=== PATIENT | female | born 1985 | race Caucasian/White ===

== ENCOUNTER 2017-03-02 12:34 | Emergency (ER) | payer OTHER ==
[2017-03-02 14:48] VITALS: BP 95/72
--- NOTE | 2017-03-02 15:39 | UC ---
Throat Pain/Nasal Kj HPI - HPI Summary HPI Summary: 31 female presents with complaints of a dry cough, nasal congestion, sore throat and swollen glands that began Thursday02/28/17. She has not tried anything OTC and symptoms have not improved. Denies worsening of symptoms. Denies fever/chills, abdominal pain, nausea, vomiting, diarrhea, headache and ear pain. States the sore throat and swollen glands pain radiates into her ears. Has been eating and drinking. Admits to her son being sick and recently diagnosed with an URI a few days ago. Is here with her younger son who also has the same symptoms. - History of Current Complaint Chief Complaint: UCGeneralIllness Stated Complaint: SORE THROAT,FEVER,BILATERAL EAR PAIN Time Seen by Provider: 03/02/17 15:06 Hx Obtained From: Patient Hx Last Menstrual Period: DAY 3 OF CURRENT MENSES ?: No Onset/Duration: Sudden Onset, Lasting Days, Still Present Severity: Mild Pain Intensity: 7 Pain Scale Used: 0-10 Numeric Cough: None Associated Signs & Symptoms: Positive: Dysphagia, Nasal Discharge. Negative: Wheezing, Sinus Discomfort, Fever - Allergies/Home Medications Allergies/Adverse Reactions: Allergies Allergy/AdvReac Type Severity Reaction Status Date / Time No Known Allergies Allergy Verified 03/02/17 14:48 Home Medications: Home Medications Biotin 5,000 mcg PO DAILY 03/02/17 [History Confirmed 03/02/17] Fluoxetine HCl [Prozac] 40 mg PO DAILY 03/02/17 [History Confirmed 03/02/17] Levothyroxine TAB* [Synthroid TAB*] 88 mcg PO DAILY 03/02/17 [History Confirmed 03/02/17] Quetiapine Fumarate [Seroquel] 200 mg PO BID 03/02/17 [History Confirmed ] Topiramate [Topamax 50 mg tab] 50 mg PO BID 03/02/17 [History Confirmed 03/02/17 ] PMH/Surg Hx/FS Hx/Imm Hx Endocrine History Of: Reports: Thyroid Disease - HYPO Denies: Diabetes Cardiovascular History Of: Denies: Hypertension, Pacemaker/ICD Respiratory History Of: Denies: Asthma - Surgical History Surgical History: Yes Surgery Procedure, Year, and Place: HYSTERECTOMY 12/10/15, [facility]. [place] TO WAIVE POST SURGICAL WAITING PERIOD PER DR COTTON - Family History Known Family History: Positive: None - Social History Alcohol Use: Rare Substance Use Type: None Smoking Status (MU): Current Every Day Smoker Type: Cigarettes Amount Used/How Often: 6-7 CIGS DAILY Length of Time of Smoking/Using Tobacco: APPROX 3 YRS Review of Systems Constitutional: Negative Skin: Negative Eyes: Negative ENT: Sore Throat, Nasal Discharge Respiratory: Cough Cardiovascular: Negative Gastrointestinal: Negative Genitourinary: Negative Motor: Negative Neurovascular: Negative Musculoskeletal: Negative Neurological: Negative Psychological: Negative All Other Systems Reviewed And Are Negative: Yes Physical Exam Triage Information Reviewed: Yes Appearance: Well-Appearing, No Pain Distress, Well-Nourished Vital Signs: Initial Vital Signs Temp 98.5 F 03/02/17 14:43 Pulse 72 03/02/17 14:43 Resp 14 03/02/17 14:43 BP 95/72 03/02/17 14:43 Pulse Ox 99 03/02/17 14:43 Vital Signs Reviewed: Yes Eyes: Positive: Conjunctiva Clear ENT: Positive: Normal ENT inspection, Hearing grossly normal, Pharyngeal erythema, Nasal congestion, TMs normal, Tonsillar swelling - minimal. Negative : Tonsillar exudate Dental: Positive: Cervical Lymphadenopathy. Negative: Percussion Tenderness @ Neck: Positive: Supple, Nontender Respiratory: Positive: Chest non-tender, Lungs clear, Normal breath sounds, No respiratory distress, No accessory muscle use Cardiovascular: Positive: RRR, No Murmur, Pulses Normal, Brisk Capillary Refill Abdominal Exam: Normal Bowel Sounds: Positive: Present Musculoskeletal Exam: Normal Neurological: Positive: Alert Psychological Exam: Normal Skin Exam: Normal Throat Pain/Nasal Course/Dx - Course Course Of Treatment: strep culture obtained and negative. patient will be treated for URI with symptomatic measures at this time. prescibed flonase. aware of worsening signs and symptoms to watch out for. - Differential Dx/Diagnosis Differential Diagnosis/HQI/PQRI: Influenza, Otitis Media, Pharyngitis, Sinusitis , Tonsillitis, URI Provider Diagnoses: URI Discharge - Discharge Plan Condition: Stable Disposition: HOME Prescriptions: Fluticasone NASAL SPRAY 50MCG* [Flonase NASAL SPRAY 50MCG*] 2 spray BOTH NARES DAILY #1 btl Patient Education Materials: Upper Respiratory Infection (ED) Referrals: Rita Houser MD [Medical Doctor] - Additional Instructions: Use prescribed Flonase as directed to help with nasal congestion. Take tylenol/ ibuprofen as needed for discomfort and fever. Take OTC medications such as Zicam and Mucinex to help with congestion and to improve symptoms. Drink plenty of fluids, get plenty of rest and wash hands frequently. If symptoms persist or worsen please seek medical attention. Viral illness may last up to 14 days.
== END 2017-03-02 15:58 | disposition home or self-care (01) ==
LOC: UCCORT 12:34
DX: J06.9 Acute upper respiratory infection, unspecified (principal); E03.9 Hypothyroidism, unspecified; F17.210 Nicotine dependence, cigarettes, uncomplicated
CPT/HCPCS: 87651; 99211; G0463

== ENCOUNTER 2019-02-07 09:13 | Emergency (ER) | payer OTHER ==
[2019-02-07 10:36] VITALS: BP 111/86
--- NOTE | 2019-02-07 11:37 | UC ---
General HPI - HPI Summary HPI Summary: Satruday am sudden head congestion, cough, chest congestion and headache with bodyaches. no hx asthma. lungs feel a little tight and has used an albuterol mdi in past with relief. +f/c's - History of Current Complaint Chief Complaint: UCRespiratory Stated Complaint: EARS,SORE THROAT,COUGH Time Seen by Provider: 02/07/19 11:14 Hx Obtained From: Patient Hx Last Menstrual Period: DAY 3 OF CURRENT MENSES Timing: Constant Pain Intensity: 5 Associated Signs & Symptoms: Negative: Chest Pain - Allergy/Home Medications Allergies/Adverse Reactions: Allergies Allergy/AdvReac Type Severity Reaction Status Date / Time No Known Allergies Allergy Verified 02/07/19 10:31 PMH/Surg Hx/FS Hx/Imm Hx Endocrine History: Thyroid Disease Psychological History: Bipolar Disorder - Surgical History Surgical History: Yes Surgery Procedure, Year, and Place: HYSTERECTOMY 12/10/15, [facility]. [place] TO WAIVE POST SURGICAL WAITING PERIOD PER DR COTTON - Family History Known Family History: Positive: None - Social History Lives: With Family Alcohol Use: Occasionally Substance Use Type: None Smoking Status (MU): Current Every Day Smoker Type: Cigarettes Amount Used/How Often: 6-7 CIGS DAILY Length of Time of Smoking/Using Tobacco: APPROX 3 YRS - Immunization History Vaccination Up to Date: Yes Review of Systems All Other Systems Reviewed And Are Negative: Yes Constitutional: Positive: Fever, Chills ENT: Positive: Sinus Congestion Respiratory: Positive: Shortness Of Breath, Cough Musculoskeletal: Positive: Myalgia Neurological: Positive: Headache Physical Exam Triage Information Reviewed: Yes Appearance: Well-Appearing Vital Signs: Initial Vital Signs Temp 98.5 F 02/07/19 10:32 Pulse 60 02/07/19 10:32 Resp 16 02/07/19 10:32 BP 111/86 02/07/19 10:32 Pulse Ox 100 02/07/19 10:32 Vital Signs Reviewed: Yes Eyes: Positive: Conjunctiva Clear ENT: Positive: Pharynx normal, Nasal congestion, TMs normal. Negative: Nasal drainage, Sinus tenderness Neck: Positive: Supple, Nontender, No Lymphadenopathy Respiratory: Positive: Lungs clear, No respiratory distress, Decreased breath sounds - slight, Other: - NPC Cardiovascular: Positive: RRR, No Murmur Abdomen Description: Positive: Nontender, No Organomegaly, Soft Bowel Sounds: Positive: Present Musculoskeletal: Positive: ROM Intact Neurological: Positive: Alert Psychological: Positive: Age Appropriate Behavior Skin Exam: Normal Course/Dx - Course Course Of Treatment: rapid flu=neg; however, pt s/s's c/w local influenza - Diagnoses Provider Diagnosis: Influenza-like illness Discharge - Sign-Out/Discharge Documenting (check all that apply): Patient Departure All imaging exams completed and their final reports reviewed: No Studies - Discharge Plan Condition: Stable Disposition: HOME Prescriptions: Albuterol HFA INHALER* [Ventolin HFA Inhaler*] 2 puff INH Q6H #1 mdi Patient Education Materials: Influenza (ED) Forms: *Work Release Referrals: Mayra Rodriguez NP [Primary Care Provider] - 5 Days - Billing Disposition and Condition Condition: STABLE Disposition: Home - Attestation Statements Provider Attestation: I was available for consult. This patient was seen by the [facility]. The patient was not presented to, seen by, or examined by me. -[place]
[2019-02-07 11:49] LABS: Influenza A Molecular NEGATIVE (Negative); Influenza B Molecular NEGATIVE (Negative)
== END 2019-02-07 12:00 | disposition home or self-care (01) ==
LOC: UCCORT 09:13
DX: J11.1 Influenza due to unidentified influenza virus with other respiratory manifestations (principal); F17.210 Nicotine dependence, cigarettes, uncomplicated; E07.9 Disorder of thyroid, unspecified; F31.9 Bipolar disorder, unspecified
CPT/HCPCS: 99212; G0463

== ENCOUNTER 2019-04-20 09:10 | Emergency (ER) | payer OTHER ==
[2019-04-20 09:29] VITALS: BP 101/77
--- NOTE | 2019-04-20 10:22 | UC ---
General HPI - HPI Summary HPI Summary: DAY 4 OF NASAL CONGESTION, COUGH AND SNEEZING. FEVER LAST PM. HX ALLERGIES. NO ASTHMA. PT TAKING DECONGESTANT. - History of Current Complaint Chief Complaint: UCGeneralIllness Stated Complaint: COUGH,SINUS CONCERN,FEVER Time Seen by Provider: 04/20/19 10:16 Hx Obtained From: Patient Hx Last Menstrual Period: N/A Onset/Duration: Gradual Onset Timing: Constant Pain Intensity: 4 Associated Signs & Symptoms: Negative: Chest Pain, SOB - Allergy/Home Medications Allergies/Adverse Reactions: Allergies Allergy/AdvReac Type Severity Reaction Status Date / Time No Known Allergies Allergy Verified 04/20/19 09:30 Home Medications: Home Medications Pseudoephedrine HCL ER TAB* [Sudafed 12 Hour*] 120 mg PO BID 04/20/19 [History Confirmed 04/20/19] PMH/Surg Hx/FS Hx/Imm Hx Psychological History: Bipolar Disorder - Surgical History Surgical History: Yes Surgery Procedure, Year, and Place: HYSTERECTOMY 12/10/15, [facility]. [place] TO WAIVE POST SURGICAL WAITING PERIOD PER DR COTTON - Family History Known Family History: Positive: None - Social History Lives: With Family Alcohol Use: Occasionally Substance Use Type: None Smoking Status (MU): Current Every Day Smoker Type: Cigarettes Amount Used/How Often: 1/2 ppd Length of Time of Smoking/Using Tobacco: APPROX 3 YRS - Immunization History Vaccination Up to Date: Yes Review of Systems All Other Systems Reviewed And Are Negative: Yes Constitutional: Positive: Fever ENT: Positive: Sinus Congestion Respiratory: Positive: Cough Physical Exam Triage Information Reviewed: Yes Appearance: Well-Appearing Vital Signs: Initial Vital Signs Temp 97.6 F 04/20/19 09:24 Pulse 74 04/20/19 09:24 Resp 16 04/20/19 09:24 BP 101/77 04/20/19 09:24 Pulse Ox 100 04/20/19 09:24 Vital Signs Reviewed: Yes Eyes: Positive: Conjunctiva Clear ENT: Positive: Pharynx normal, Nasal congestion, Nasal drainage - CLEAR, TMs normal Neck: Positive: Supple, Nontender, No Lymphadenopathy Respiratory: Positive: Lungs clear, Normal breath sounds, No respiratory distress Cardiovascular: Positive: RRR, No Murmur Abdomen Description: Positive: Nontender Musculoskeletal: Positive: ROM Intact Neurological: Positive: Alert Psychological: Positive: Age Appropriate Behavior Skin Exam: Normal Course/Dx - Differential Dx - Multi-Symptom Differential Diagnoses: Other - NO CONCERN FOR PNEUMONIA. ANTIBIOTICS NOT INDICATED. OTC ZYRTEC SUGGESTED. - Diagnoses Provider Diagnosis: URI (upper respiratory infection), Bronchitis Discharge - Sign-Out/Discharge Documenting (check all that apply): Patient Departure All imaging exams completed and their final reports reviewed: No Studies - Discharge Plan Condition: Stable Disposition: HOME Patient Education Materials: Upper Respiratory Infection (DC), Acute Bronchitis (ED), Allergies (ED) Referrals: Mayra Rodriguez WATER SUPERINTENDENT [Primary Care Provider] - Additional Instructions: FOLLOW UP IF NOT BETTER IN 5-7 DAYS OR SOONER IF WORSE. - Billing Disposition and Condition Condition: STABLE Disposition: Home
== END 2019-04-20 10:28 | disposition home or self-care (01) ==
LOC: UCCORT 09:10
DX: J06.9 Acute upper respiratory infection, unspecified (principal); J40 Bronchitis, not specified as acute or chronic; F17.210 Nicotine dependence, cigarettes, uncomplicated
CPT/HCPCS: 99211; G0463

== ENCOUNTER 2019-05-12 08:47 | Emergency (ER) | payer OTHER ==
[2019-05-12 09:08] VITALS: BP 114/73
--- NOTE | 2019-05-12 09:25 | UC ---
Skin Complaint HPI - HPI Summary HPI Summary: bilateral itchy hand x 1 day swelling of both hands , noted this morning , rash is only at the palm of her hands 5 out of 10 in severity , nothing makes it better or worse no fever, no chills, went to the hospital last week for itchy thighs and bruising , all the work up including blood works were normal - History of Current Complaint Chief Complaint: UCSkin Time Seen by Provider: 05/12/19 09:11 Stated Complaint: SKIN CONCERN Hx Obtained From: Patient Hx Last Menstrual Period: no menses ?: No Onset/Duration: Gradual Onset, Lasting Days - 1, Still Present Timing: Constant Onset Severity: Moderate Current Severity: Moderate Pain Intensity: 0 Location: Hand (Right), Hand (Left) Character: Pruritus Aggravating Factor(s): Nothing Alleviating Factor(s): Nothing Associated Signs & Symptoms: Positive: Rash, Bruising. Negative: Nausea, Vomiting, Numbness, Thirst, Fever, Chills, Tenderness - Allergy/Home Medications Allergies/Adverse Reactions: Allergies Allergy/AdvReac Type Severity Reaction Status Date / Time No Known Allergies Allergy Verified 05/12/19 09:08 PMH/Surg Hx/FS Hx/Imm Hx Previously Healthy: Yes - Surgical History Surgical History: Yes Surgery Procedure, Year, and Place: HYSTERECTOMY 12/10/15, [facility] - Family History Known Family History: Positive: None Negative: Diabetes - Social History Alcohol Use: Weekly Substance Use Type: None Smoking Status (MU): Heavy Every Day Tobacco Smoker Type: Cigarettes Amount Used/How Often: 1/2 ppd Length of Time of Smoking/Using Tobacco: since age 27 Have You Smoked in the Last Year: Yes - Immunization History Vaccination Up to Date: Yes Review of Systems All Other Systems Reviewed And Are Negative: Yes Constitutional: Positive: Negative Skin: Positive: Rash Eyes: Positive: Negative ENT: Positive: Negative Respiratory: Positive: Negative Is Patient Immunocompromised?: No Physical Exam Triage Information Reviewed: Yes Appearance: Well-Appearing, No Pain Distress, Well-Nourished Vital Signs: Initial Vital Signs Temp 98 F 05/12/19 08:59 Pulse 81 05/12/19 08:59 Resp 16 05/12/19 08:59 BP 114/73 05/12/19 08:59 Pulse Ox 100 05/12/19 08:59 Vital Signs Reviewed: Yes Eye Exam: Normal Eyes: Positive: Conjunctiva Clear ENT: Positive: Normal ENT inspection, Hearing grossly normal, Pharynx normal Neck: Positive: Supple, Nontender, No Lymphadenopathy Respiratory: Positive: Chest non-tender, Lungs clear, Normal breath sounds Cardiovascular: Positive: RRR, No Murmur, Pulses Normal Skin: Positive: Rashes - papular rash bilateral palms, itchy , no redness, mild swelling of the hands Course/Dx - Diagnoses Provider Diagnosis: Hand dermatitis Discharge - Sign-Out/Discharge Documenting (check all that apply): Patient Departure All imaging exams completed and their final reports reviewed: No Studies - Discharge Plan Condition: Stable Disposition: HOME Prescriptions: predniSONE TAB* [Deltasone 20 MG TAB*] 40 mg PO DAILY #10 tab Patient Education Materials: Dermatitis (ED) Forms: *Work Release Referrals: Mayra Rodriguez NP [Primary Care Provider] - 5 Days Additional Instructions: symptoms might be due to allergic reaction will have you try Prednisone 40 mg daily for 5 days increase fluid intake follow up if not better in 5 days - Billing Disposition and Condition Condition: STABLE Disposition: Home
== END 2019-05-12 09:24 | disposition home or self-care (01) ==
LOC: UCCORT 08:47
DX: L30.9 Dermatitis, unspecified (principal); F17.210 Nicotine dependence, cigarettes, uncomplicated
CPT/HCPCS: 99212; G0463